=== PATIENT | male | born 1975 | race Two or more races ===

== ENCOUNTER 2022-09-17 14:04 | Emergency (ER) | payer MEDICAID ==
[~2022-09-17] VITALS: Ht 175.3 cm; Wt 130.0 kg
[2022-09-17 15:45] VITALS: BP 117/78
[2022-09-17] MEDS ORDERED: LIDOCAINE 1% HCL (LOCAL ANESTH.) INJ 20ML MDV IJ ONE (16:15)
[2022-09-17] MEDS ORDERED: TETANUS-DIPTH-ACEL PERTUSSIS 0.5ML SYR Tdap IM ONE (16:15)
[2022-09-17] MEDS ORDERED: AMOX-277 PO (16:40)
[2022-09-17] MEDS ORDERED: IBUP800T27 PO (16:40)
== END 2022-09-17 16:57 | disposition home or self-care (01) ==
LOC: ER 14:04
DX: S61.210A Laceration without foreign body of right index finger without damage to nail, initial encounter (principal); S61.250A Open bite of right index finger without damage to nail, initial encounter; Z79.1 Long term (current) use of non-steroidal anti-inflammatories (NSAID); Z79.2 Long term (current) use of antibiotics; W54.0XXA Bitten by dog, initial encounter; Y93.89 Activity, other specified; Y92.89 Other specified places as the place of occurrence of the external cause; Y99.8 Other external cause status
CPT/HCPCS: 12004; 90471; 90715; 99283; J2001